=== PATIENT | male | born 1930 | race Caucasian/White ===

== ENCOUNTER 2016-09-08 00:09 | Emergency (ER) | payer MEDICARE, BC ==
[2016-09-08] MEDS ORDERED: MOTRIN400 MG PO (04:28)
[2016-09-08] MEDS ORDERED: ATIVAN0.5 MG PO ×3 (04:29→04:31)
[2016-09-08] MEDS ORDERED: ATIVAN1 MG PO (04:31)
[2016-09-08] MEDS ORDERED: ZOLOFT50 MG PO (04:33)
[2016-09-08] MEDS ORDERED: THERA M PLUS T1 EACH PO (04:34)
[2016-09-08] MEDS ORDERED: TYLENOL325 MG PO (04:35)
== END 2016-09-08 02:35 | disposition short-term general hospital (02) ==
LOC: ER 00:09
DX: A41.9 Sepsis, unspecified organism (principal); J18.9 Pneumonia, unspecified organism; N19 Unspecified kidney failure; F03.90 Unspecified dementia, unspecified severity, without behavioral disturbance, psychotic disturbance, mood disturbance, and anxiety; E87.6 Hypokalemia; R06.00 Dyspnea, unspecified; Z87.891 Personal history of nicotine dependence; Z88.8 Allergy status to other drugs, medicaments and biological substances; Z79.899 Other long term (current) drug therapy
CPT/HCPCS: J0330; J2250; J2543